=== PATIENT | male | born 1990 | race American Indian/Alaskan Native ===

== ENCOUNTER 2019-03-26 12:16 | Emergency (ER) | payer SELFPAY ==
[2019-03-26 12:28] VITALS: BP 139/73
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
== END 2019-03-26 14:45 | disposition left against medical advice (07) ==
LOC: ED 12:16
DX: R07.81 Pleurodynia (principal); M25.572 Pain in left ankle and joints of left foot; M54.9 Dorsalgia, unspecified
CPT/HCPCS: 99281